=== PATIENT | female | born 1945 | race Caucasian/White ===

== ENCOUNTER 2016-12-06 11:14 | Inpatient (IN) | payer MEDICARE ==
[2016-12-06] MEDS ORDERED: Ondansetron 4 MG Tab.DIS PO PRN (16:00)
[2016-12-06] MEDS ORDERED: Simethicone 125 MG Tab.Chew PO PRN (16:15)
[2016-12-06] MEDS: traMADol 50 MG Tab PO PRN ×2 (16:24→23:35)
[2016-12-06] MEDS: Potassium Citrate 10 MEQ Tab.ER PO SCH (18:47)
[2016-12-06] MEDS: traZODone 50 MG Tab PO SCH (20:32)
[2016-12-06] MEDS: Aspirin 325 MG Tab.EC PO SCH (20:32)
[2016-12-06] MEDS: Celecoxib 200 MG Cap PO SCH (20:32)
[2016-12-06] MEDS: Simvastatin 10 MG Tab PO SCH (20:32)
[2016-12-07] MEDS: Pantoprazole 40 MG Tab.CR PO SCH (05:04)
[2016-12-07] MEDS: traMADol 50 MG Tab PO PRN (05:04)
[2016-12-07] MEDS: Celecoxib 200 MG Cap PO SCH ×2 (08:25→20:05)
[2016-12-07] MEDS: Aspirin 325 MG Tab.EC PO SCH ×2 (08:25→20:05)
[2016-12-07] MEDS: Potassium Citrate 10 MEQ Tab.ER PO SCH ×3 (08:25→17:15)
[2016-12-07] MEDS: Lisinopril 5 MG Tab PO SCH (08:26)
[2016-12-07] MEDS: Cholecalciferol (Vitamin D3) 1,000 Unit Tab PO SCH (08:27)
--- NOTE | 2016-12-07 09:18 | PCM.HP ---
H&P History of Present Illness - General Date of Service: 12/07/16 Admit Problem/Dx: Admission Diagnosis/Problem Admission Diagnosis/Problem Arthroplasty of knee Source of Information: Patient, Old Records - History of Present Illness Initial Comments - Free Text/Narative: 71-year-old female was admitted for rehabilitation. He went to right knee arthroplasty at [place]. She complains of significant pain throbbing on that knee and was unable to sleep last night. She's currently on tramadol as needed. Check constipation which is improved significantly since admission. She has a's of type 2 diabetes, with abnormal A1c, on no medications, essential hypertension have been well controlled. Further she had a history of TIAs more than 10 years ago no residual disability. She has a history of psoriasis currently using methotrexate. She lives with her fianc and is a nonsmoker. Right Knee Pain Score (Numeric/FACES): 3 - Related Data Allergies/Adverse Reactions: Allergies Allergy/AdvReac Type Severity Reaction Status Date / Time ciprofloxacin Allergy Hives Verified 04/28/15 21:16 codeine Allergy Diarrhea Verified 04/28/15 21:16 sulfamethoxazole Allergy Diarrhea Verified 04/28/15 21:16 [From Bactrim] Home Medications: Home Meds Lisinopril 5 mg PO DAILY 12/16/14 [History] traZODone HCl [Trazodone HCl] 25 mg PO BEDTIME 01/13/15 [History] Aspirin [Ecotrin] 325 mg PO BID 12/06/16 [History] Celecoxib [CeleBREX] 200 mg PO BID 12/06/16 [History] Cholecalciferol (Vitamin D3) [Vitamin D3] 2,000 units PO DAILY 12/06/16 [History ] Methotrexate 15 mg PO FR 12/06/16 [History] Omeprazole 20 mg PO DAILY@0600 12/06/16 [History] Ondansetron [Zofran ODT] 4 mg PO Q4H PRN 12/06/16 [History] Potassium Citrate 10 meq PO TIDMEALS 12/06/16 [History] Simethicone [Gas-X] 125 mg PO Q4H PRN 12/06/16 [History] Simvastatin [Zocor] 10 mg PO BEDTIME 12/06/16 [History] traMADol [Ultram] 50 mg PO Q4H PRN 12/06/16 [History] Past Medical History - Past Health History Medical/Surgical History: Denies Medical/Surgical History HEENT History: Reports: Impaired Vision, Other (See Below) Other HEENT History: wears glasses Cardiovascular History: Reports: Other (See Below) Other Cardiovascular History: hypertrophy Genitourinary History: Reports: Renal Disease Musculoskeletal History: Reports: Other (See Below) Other Musculoskeletal History: 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 on 11/29 Neurological History: Reports: CVA Endocrine/Metabolic History: Reports: Diabetes, Type II, Other (See Below) Other Endocrine/Metabolic History: diet controlled Dermatologic History: Reports: Psoriasis - Past Surgical History Female Surgical History: Reports: Section, Hysterectomy Musculoskeletal Surgical History: Reports: Knee Replacement Other Musculoskeletal Surgeries/Procedures:: 11/29/16 Social & Family History - Family History Family Medical History: Noncontributory - Tobacco Use Smoking Status *Q: Never Smoker Used Tobacco, but Quit: No Second Hand Smoke Exposure: No - Caffeine Use Caffeine Use: Reports: Coffee - Recreational Drug Use Recreational Drug Use: No H&P Review of Systems - Review of Systems: Review Of Systems: ROS reveals no pertinent complaints other than HPI. Exam - Exam Exam: See Below - Vital Signs Vital Signs: Last Vital Signs Temp 96.9 F 12/07/16 07:35 Pulse 78 12/07/16 07:35 Resp 18 12/07/16 07:35 BP 147/69 H 12/07/16 08:26 Pulse Ox 94 L 12/07/16 07:35 Weight: 100.335 kg - Exam General: Alert, Oriented, 4 HEENT: PERRLA, Hearing Intact, Mucosa Moist & [place], Nares Patent, Normal Nasal Septum, Posterior Pharynx Clear, Conjunctiva Clear, EOMI, EACs Clear, TMs Clear Neck: Supple, Trachea Midline, 2 Lungs: Clear to Auscultation, Normal Respiratory Effort Cardiovascular: Other (click) GI/Abdominal Exam: Distended (Female) Exam: Deferred Rectal (Female) Exam: Deferred Back Exam: Normal Inspection, Full Range of Motion, NT Extremities: Joint Swelling, Increased Warmth (right knee). No: Pedal Edema Skin: Warm, Dry, Intact Neurological: Cranial Nerves Intact, Reflexes Equal Bilateral Neuro Extensive - Mental Status: Alert, Oriented x3, Normal Mood/Affect, Normal Cognition Neuro Extensive - Motor, Sensory, Reflexes: CN II-XII Intact, Normal Gait, Normal Reflexes Psychiatric: Alert, Normal Affect, Normal Mood *Q Meaningful Use (ADM) - VTE *Q VTE Criteria *Q: - Stroke *Q Stroke Criteria *Q: - AMI *Q AMI Criteria *Q: - Problem List (1) Hip joint replacement status SNOMED Code(s): 040527332, 984852411, 020914716 ICD Code: Z96.649 - PRESENCE OF UNSPECIFIED ARTIFICIAL HIP JOINT Status: Acute Current Visit: Yes Qualifiers: Laterality: right Qualified Code(s): Z96.641 - Presence of right artificial hip joint (2) HTN (hypertension) SNOMED Code(s): 79236249 ICD Code: I10 - ESSENTIAL (PRIMARY) HYPERTENSION Status: Acute Current Visit: Yes Qualifiers: Hypertension type: essential hypertension Qualified Code(s): I10 - Essential (primary) hypertension (3) Diabetes mellitus type 2 in obese SNOMED Code(s): 48528000 ICD Code: E11.69 - TYPE 2 DIABETES MELLITUS WITH OTHER SPECIFIED COMPLICATION ; E66.9 - OBESITY, UNSPECIFIED Status: Chronic Current Visit: Yes (4) Psoriasis SNOMED Code(s): 3182680 ICD Code: L40.9 - PSORIASIS, UNSPECIFIED Status: Acute Current Visit: Yes Problem List Initiated/Reviewed/Updated: Yes Orders Last 24hrs: Active Orders 24 hr Category Date Time Status Admission Status [Patient Status] [ADT] Routine ADT 12/06/16 13:19 Active Ambulate [RC] QID Care 12/06/16 13:36 Active Cooling Warming Measures [RC] ASDIRECTED Care 12/06/16 13:29 Active Elevate Extremity [RC] QID Care 12/06/16 13:29 Active May Shower [RC] ASDIRECTED Care 12/06/16 13:32 Active Weight [Height and Weight] [RC] .qSun Care 12/06/16 16:31 Active OT Evaluation and Treatment [CONS] Routine Cons 12/06/16 15:14 Active PT Evaluation and Treatment [CONS] Routine Cons 12/06/16 15:14 Active Consistent Carbohydrate Diet [DIET] Diet 12/06/16 Dinner Active Acetaminophen/HYDROcodone [[place] 325-5 MG] Med 12/07/16 09:17 Ordered 1 tab PO Q4H PRN Aspirin [Ecotrin] Med 12/06/16 21:00 Active 325 mg PO BID Celecoxib [CeleBREX] Med 12/06/16 21:00 Active 200 mg PO BID Cholecalciferol (Vitamin D3) [Vitamin D3] Med 12/07/16 09:00 Active 2,000 units PO DAILY Lisinopril [Prinivil] Med 12/07/16 09:00 Active 5 mg PO DAILY Methotrexate Med 12/10/16 09:00 Active 15 mg PO FR Ondansetron [Zofran ODT] Med 12/06/16 16:00 Active 4 mg PO Q4H PRN Pantoprazole [ProTONIX] Med 12/07/16 06:00 Active 40 mg PO DAILY@0600 Potassium Citrate Med 12/06/16 18:00 Active 10 meq PO TIDMEALS Simethicone Med 12/06/16 16:15 Active 125 mg PO Q4H PRN Simvastatin [Zocor] Med 12/06/16 21:00 Active 10 mg PO BEDTIME traZODone Med 12/06/16 21:00 Active 25 mg PO BEDTIME Antiembolic Hose [OM.PC] Routine Oth 12/06/16 13:36 Ordered Ice Therapy [OM.PC] Routine Oth 12/06/16 13:29 Ordered Weight bearing status [OM.PC] Routine Oth 12/06/16 13:36 Ordered Resuscitation Status Routine Resus Stat 12/06/16 14:03 Ordered Medication Orders Hydrocodone Bitart/Acetaminophen ([place] 325-5 Mg) 1 tab PO Q4H PRN PRN Reason: Breakthrough Pain Aspirin (Ecotrin) 325 mg PO BID [facility] Last Admin: 12/07/16 08:25 Dose: 325 mg Admin: 12/06/16 20:32 Dose: 325 mg Celecoxib (Celebrex) 200 mg PO BID [facility] Last Admin: 12/07/16 08:25 Dose: 200 mg Admin: 12/06/16 20:32 Dose: 200 mg Cholecalciferol (Vitamin D3) 2,000 units PO DAILY [facility] Last Admin: 12/07/16 08:27 Dose: 2,000 units Lisinopril (Prinivil) 5 mg PO DAILY [facility] Last Admin: 12/07/16 08:26 Dose: 5 mg Methotrexate (Methotrexate) 15 mg PO FR [facility] Ondansetron HCl (Zofran Odt) 4 mg PO Q4H PRN PRN Reason: Nausea/Vomiting Pantoprazole Sodium (Protonix) 40 mg PO DAILY@0600 [facility] Last Admin: 12/07/16 05:04 Dose: 40 mg Potassium Citrate (Potassium Citrate) 10 meq PO TIDMEALS [facility] Last Admin: 12/07/16 08:25 Dose: 10 meq Admin: 12/06/16 18:47 Dose: 10 meq Simethicone (Simethicone) 125 mg PO Q4H PRN PRN Reason: GAS/FLATULENCE Simvastatin (Zocor) 10 mg PO BEDTIME [facility] Last Admin: 12/06/16 20:32 Dose: 10 mg Trazodone HCl (Trazodone) 25 mg PO BEDTIME [facility] Last Admin: 12/06/16 20:32 Dose: 25 mg Assessment/Plan Comment:: We'll continue with physical and occupational therapy as ordered. I will discontinue tramadol in favor of hydrocodone to better control her pain. The rest of the home medications have been resumed.
[2016-12-07] MEDS: Acetaminophen/HYDROcodone 325-5 MG Tab PO PRN ×3 (11:15→20:04)
[2016-12-07] MEDS: traZODone 50 MG Tab PO SCH (20:05)
[2016-12-07] MEDS: Simvastatin 10 MG Tab PO SCH (20:06)
[2016-12-08] MEDS: Acetaminophen/HYDROcodone 325-5 MG Tab PO PRN ×4 (01:06→16:29)
[2016-12-08] MEDS: Pantoprazole 40 MG Tab.CR PO SCH (06:53)
[2016-12-08] MEDS: Potassium Citrate 10 MEQ Tab.ER PO SCH ×3 (08:11→17:22)
[2016-12-08] MEDS: Cholecalciferol (Vitamin D3) 1,000 Unit Tab PO SCH (08:12)
[2016-12-08] MEDS: Lisinopril 5 MG Tab PO SCH (08:12)
[2016-12-08] MEDS: Celecoxib 200 MG Cap PO SCH ×2 (08:12→20:24)
[2016-12-08] MEDS: Aspirin 325 MG Tab.EC PO SCH ×2 (08:12→20:24)
[2016-12-08] MEDS ORDERED: Acetaminophen 325 MG Tab PO PRN (10:54)
--- NOTE | 2016-12-08 11:00 | HP ---
ADMISSION DATE: 12/06/2016 ADDENDUM: Please note that in my history and physical yesterday, I erroneously documented hip joint replacement instead of knee replacement. May it be on record that what I meant to say was status post knee arthroplasty. /[id number] LALO/RADHA
[2016-12-08] MEDS ORDERED: Simethicone 80 MG Tab.Chew PO PRN (13:42)
[2016-12-08] MEDS: traZODone 50 MG Tab PO SCH (20:24)
[2016-12-08] MEDS: Simvastatin 10 MG Tab PO SCH (20:24)
[2016-12-09] MEDS: Pantoprazole 40 MG Tab.CR PO SCH (06:30)
[2016-12-09] MEDS: Aspirin 325 MG Tab.EC PO SCH ×2 (08:43→20:16)
[2016-12-09] MEDS: Potassium Citrate 10 MEQ Tab.ER PO SCH ×3 (08:43→17:39)
[2016-12-09] MEDS: Lisinopril 5 MG Tab PO SCH (08:43)
[2016-12-09] MEDS: Celecoxib 200 MG Cap PO SCH ×2 (08:43→20:16)
[2016-12-09] MEDS: Cholecalciferol (Vitamin D3) 1,000 Unit Tab PO SCH (08:44)
[2016-12-09] MEDS: Simvastatin 10 MG Tab PO SCH (20:16)
[2016-12-09] MEDS: traZODone 50 MG Tab PO SCH (20:16)
[2016-12-09] MEDS: Acetaminophen/HYDROcodone 325-5 MG Tab PO PRN (20:17)
[2016-12-10] MEDS: Acetaminophen/HYDROcodone 325-5 MG Tab PO PRN (02:32)
[2016-12-10] MEDS: Pantoprazole 40 MG Tab.CR PO SCH (07:00)
[2016-12-10] MEDS: Potassium Citrate 10 MEQ Tab.ER PO SCH (07:37)
[2016-12-10 08:56] VITALS: BP 131/66
[2016-12-10] MEDS: Celecoxib 200 MG Cap PO SCH (08:56)
[2016-12-10] MEDS: Cholecalciferol (Vitamin D3) 1,000 Unit Tab PO SCH (08:56)
[2016-12-10] MEDS: Methotrexate 2.5 MG Tab PO SCH ×2 (08:56→09:01)
[2016-12-10] MEDS: Aspirin 325 MG Tab.EC PO SCH (08:56)
[2016-12-10] MEDS: Lisinopril 5 MG Tab PO SCH (08:56)
--- NOTE | 2016-12-10 10:32 | DISCH ---
DISCHARGE DATE: 12/10/2016 REASON FOR ADMISSION: Status post right knee arthroplasty total. DISCHARGE DIAGNOSES: Status post right knee arthroplasty total, type 2 diabetes, hyperlipidemia, psoriasis and hypertension. CONSULTATIONS: Physical Therapy. BRIEF HISTORY: This is a 71-year-old female, who had to the swing bed for physical therapy rehab after surgery and replacement the right knee and she underwent physical therapy. She is ready to go back home. Pain was better controlled on hydrocodone. DISCHARGE MEDICATIONS: 1. Aspirin 325 mg a day for 26 more days. 2. Omeprazole 10 mg a day as long as she is on the aspirin. 3. Hydrocodone 1 tablet every [address] of the tramadol. She will also go home on regular home medications of, 1. Celebrex. 2. Vitamin D3. 3. Lisinopril. 4. Methotrexate. 5. Potassium citrate. 6. Simethicone. 7. Trazodone. FOLLOWUP: She will see a physician, Dr. Gonzalez within 1 week after discharge. We will continue to home health, to check medications, and Physical and Occupational Therapy at home. Please note that I spent more than 35 minutes in the discharge of this patient. /[id number] LALO/RADHA
== END 2016-12-10 10:30 | disposition home health service (06) | DRG 561 ==
LOC: EDSTATUS 13:15 → FB.MS 14:15
PROVIDERS: ADMIT Family Medicine; ATTEND Family Medicine
DX: Z47.1 Aftercare following joint replacement surgery (principal); Z96.641 Presence of right artificial hip joint; Z98.890 Other specified postprocedural states; I10 Essential (primary) hypertension; Z86.73 Personal history of transient ischemic attack (TIA), and cerebral infarction without residual deficits; L40.9 Psoriasis, unspecified; H54.7 Unspecified visual loss; Z79.82 Long term (current) use of aspirin; Z88.1 Allergy status to other antibiotic agents; Z88.5 Allergy status to narcotic agent; E11.9 Type 2 diabetes mellitus without complications
CPT/HCPCS: 97110-GP; 97116-GP; 97161-GP; 97166-GO; 97530-GO; 97530-GO-KX; 97535-GO; A9270-GY; J8610

== ENCOUNTER 2017-11-02 12:41 | Emergency (ER) | payer MEDICARE ==
[2017-11-02] MEDS ORDERED: Ketorolac 30 MG/ML SDV IM ONE (13:01)
[2017-11-02 13:03] VITALS: BP 148/72
--- NOTE | 2017-11-02 13:09 | EDM.PDOC ---
ED HPI GENERAL MEDICAL PROBLEM - General Stated Complaint: SORE LEFT ARM BOTH KNEES Time Seen by Provider: 11/02/17 12:41 Source of Information: Reports: Patient, Family History Limitations: Reports: No Limitations - History of Present Illness INITIAL COMMENTS - FREE TEXT/NARRATIVE: 72 y.o.w.f came to the ed c/o left forearm and wrist pain and anurag knee pain after she fell while reaching for an object.. Pt had her right knee replaced last year. Pt is able to ambulate well. No N/V/D or any other acute medial issues. BP 148/72 RR 19 Pulse ox 96% on RA pulse 81 temp 36.9 Onset Date: 11/02/17 Onset Time: 13:30 Duration: Hour(s): Location: Reports: Upper Extremity, Left, Other (both knees) Quality: Reports: Ache, Dull Severity: Mild Improves with: Reports: Rest Worsens with: Reports: Movement Context: Reports: Trauma left arm & anurag knees Pain Score (Numeric/FACES): 10 - Related Data Allergies Allergy/AdvReac Type Severity Reaction Status Date / Time ciprofloxacin Allergy Hives Verified 04/28/15 21:16 codeine Allergy Respiratory Verified 11/02/17 12:59 Distress sulfamethoxazole Allergy Diarrhea Verified 04/28/15 21:16 [From Bactrim] Home Meds: Home Meds Lisinopril 5 mg PO DAILY 12/16/14 [History] Celecoxib [CeleBREX] 200 mg PO BID 12/06/16 [History] Cholecalciferol (Vitamin D3) [Vitamin D3] 2,000 units PO DAILY 12/06/16 [History ] Potassium Citrate 10 meq PO TIDMEALS 12/06/16 [History] Simethicone [Gas-X] 125 mg PO Q4H PRN 12/06/16 [History] Simvastatin [Zocor] 10 mg PO BEDTIME 12/06/16 [History] Aspirin [Ecotrin] 325 mg PO BID #27 tab.ec 12/10/16 [Rx] Omeprazole 20 mg PO DAILY@0600 #30 cap.cr 12/10/16 [Rx] Past Medical History - Past Health History Medical/Surgical History: Denies Medical/Surgical History HEENT History: Reports: Impaired Vision, Other (See Below) Other HEENT History: wears glasses Cardiovascular History: Reports: Other (See Below) Other Cardiovascular History: hypertrophy Genitourinary History: Reports: Renal Disease Musculoskeletal History: Reports: Other (See Below) Other Musculoskeletal History: 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 on 11/29 Neurological History: Reports: CVA Endocrine/Metabolic History: Reports: Diabetes, Type II, Other (See Below) Other Endocrine/Metabolic History: diet controlled Dermatologic History: Reports: Psoriasis - Past Surgical History Female Surgical History: Reports: Section, Hysterectomy Musculoskeletal Surgical History: Reports: Knee Replacement Other Musculoskeletal Surgeries/Procedures:: 11/29/16 Social & Family History - Family History Family Medical History: Noncontributory - Caffeine Use Caffeine Use: Reports: Coffee Review of Systems - Review of Systems Review Of Systems: See Below Constitutional: Reports: No Symptoms Eyes: Reports: No Symptoms Ears: Reports: No Symptoms Nose: Reports: No Symptoms Mouth/Throat: Reports: No Symptoms Respiratory: Reports: No Symptoms Cardiovascular: Reports: No Symptoms GI/Abdominal: Reports: No Symptoms Genitourinary: Reports: No Symptoms Musculoskeletal: Reports: Other (left wrist pain anurag knee pain) Skin: Reports: No Symptoms Neurological: Reports: No Symptoms Psychiatric: Reports: No Symptoms ED EXAM, GENERAL - Physical Exam Exam: See Below Exam Limited By: Physical Impairment General Appearance: Alert, WD/WN, Mild Distress, Obese Eye Exam: Bilateral Eye: Normal Inspection Ears: Normal External Exam Ear Exam: Bilateral Ear: Auricle Normal Nose: Normal Inspection, Normal Mucosa, No Blood Throat/Mouth: Normal Inspection, Normal Lips, Normal Gums, Normal Oropharynx, Normal Voice, No Airway Compromise Head: Atraumatic, Normocephalic Neck: Normal Inspection, Supple, Non-Tender, Full Range of Motion Respiratory/Chest: No Respiratory Distress, Lungs Clear, Normal Breath Sounds, No Accessory Muscle Use, Chest Non-Tender Cardiovascular: Normal Peripheral Pulses, Regular Rate, Rhythm GI/Abdominal: Normal Bowel Sounds, Soft, Non-Tender, No Organomegaly, No Distention (Female) Exam: Deferred Rectal (Female) Exam: Deferred Back Exam: Normal Inspection, Full Range of Motion Extremities: Normal Inspection, Normal Range of Motion, Other (tender left dist radius to palpation) Neurological: Alert, Oriented, CN II-XII Intact, Normal Cognition, Normal Gait, No Motor/Sensory Deficits Psychiatric: Normal Affect, Normal Mood Skin Exam: Warm, Dry, Intact, Normal Color, No Rash Lymphatic: No Adenopathy Course - Vital Signs Text/Narrative:: 72 y.o.w.f came to the ed c/o left forearm and wrist pain and anurag knee pain after she fell while reaching for an object.. Pt had her right knee replaced last year. Pt is able to ambulate well. No N/V/D or any other acute medial issues. BP 148/72 RR 19 Pulse ox 96% on RA pulse 81 temp 36.9 PE: Obese 72 y.o.w.f with knee and left wrsit pain, ambulates well Imaging: Left wrist: poss fructure left distal radius as per RAD Impression: left wrist sprain vs fracture 2.01 pm Consultation: Dr. Pro, ortho: Valco splint, f/u in clinic this Tuesday. Tx: ICE, Toradol, Valcow splint Reexam: Improved Plan: D/C with instructions Last Recorded V/S: Last Vital Signs Temp 36.4 C 11/02/17 12:42 Pulse 72 11/02/17 12:42 Resp 16 11/02/17 12:42 BP 148/72 H 11/02/17 12:42 Pulse Ox 98 11/02/17 12:42 - Orders/Labs/Meds Orders: Active Orders 24 hr Category Date Time Status Ice Therapy [OM.PC] Routine Oth 11/02/17 13:01 Ordered Meds: Medications Discontinued Medications Generic Name Dose Route Start Last Admin Trade Name Freq PRN Reason Stop Dose Admin Ketorolac Tromethamine 30 mg 11/02/17 13:01 11/02/17 13:08 Toradol IM 11/02/17 13:02 30 mg ONETIME ONE Administration Departure - Departure Time of Disposition: 13:54 Disposition: Home, Self-Care 01 Condition: Good Clinical Impression: Left wrist sprain Qualifiers: Encounter type: initial encounter Qualified Code(s): S63.502A - Unspecified sprain of left wrist, initial encounter - Discharge Information Instructions: Wrist Splint, Adult, [id number], Wrist Sprain, Adult Referrals: Roseline Willson NP [Primary Care Provider] - Vinod Pro DO [Physician] - Forms: ED Department Discharge Additional Instructions: Please apply the splint at daytime, take motrin for pain, ICE, Rest and Elevation, please f/u with Dr. Pro this Tuesday. Please come back if your symptoms get worse acutely - My Orders Last 24 Hours: My Active Orders 11/02/17 13:01 Ice Therapy [OM.PC] Routine - Assessment/Plan Last 24 Hours: My Active Orders 11/02/17 13:01 Ice Therapy [OM.PC] Routine
--- NOTE | 2017-11-02 14:47 | CR ---
INDICATION: Trauma, fell today. LEFT WRIST: Three views of the left wrist revealed question of a partial cortical fracture at the distal radial shaft - metaphysis. No displaced fracture site or dislocation was identified. Degenerative changes are noted at the first metacarpocarpal joint of moderate degree. Calcific density adjacent to the ulnar styloid may represent an ununited accessory ossification center or previous soft tissue injury with calcification in the soft tissues in that area. The latter is felt to be more likely. Somewhat demineralized appearance suggests the possibility of osteoporosis - correlate clinically. IMPRESSION: No displaced fracture site identified but question minimal - partial cortical fracture at the distal radius. Followup study in 10-14 days may be helpful. Report was called to Dr. Wells at 1334 hours on 11/02/2017. [facility]
--- NOTE | 2017-11-02 14:51 | CR ---
INDICATION: Trauma, fell today. LEFT FOREARM: Frontal and lateral views of the left forearm were obtained and revealed no displaced fracture site or dislocation or other definite acute bone or joint abnormality. Degenerative changes are noted at the medial elbow joint compartment of moderate degree. Degenerative changes are noted at the first metacarpocarpal joint. IMPRESSION: 1. No displaced fracture site is identified. 2. Osteoarthritis. 3. Probable osteoporosis - correlate clinically. Report was called to Dr. Wells at 1334 hours on 11/02/2017. [facility]
== END 2017-11-02 14:10 | disposition home or self-care (01) ==
LOC: FB.ED 12:41
DX: S63.502A Unspecified sprain of left wrist, initial encounter (principal); E11.9 Type 2 diabetes mellitus without complications; Z88.1 Allergy status to other antibiotic agents; Z88.5 Allergy status to narcotic agent; Z88.2 Allergy status to sulfonamides; Z79.82 Long term (current) use of aspirin; Z79.899 Other long term (current) drug therapy; Z96.651 Presence of right artificial knee joint; W19.XXXA Unspecified fall, initial encounter
CPT/HCPCS: 73090; 73110; 96372; 99283; J1885

== ENCOUNTER 2018-12-04 07:56 | Emergency (ER) | payer MEDICARE ==
--- NOTE | 2018-12-04 08:21 | EDM.PDOC ---
ED HPI GENERAL MEDICAL PROBLEM - General Stated Complaint: VOMITING Time Seen by Provider: 12/04/18 08:00 Source of Information: Reports: Patient, Family History Limitations: Reports: No Limitations - History of Present Illness INITIAL COMMENTS - FREE TEXT/NARRATIVE: Patient is a pleasant 73-year-old female who presents today with lower abdominal pain and some right and left-sided abdominal pain. She feels like she needs to pass stool, but states that she's tried a couple times this morning and has not been able to. Slight amount of sweating. States that her urination is okay. Her last bowel movement was 3 days ago, and she noticed some belching this morning for which she took Pepto-Bismol. The pain is constant and woke her up from sleep. She did not eat anything for breakfast. She does not feel lightheaded or dizzy, she denies any chest pain, shortness of breath, numbness or tingling in her hands or feet. History of gallbladder surgery, 3 C-sections nonclassic style, hysterectomy and has one ovary. Has not had her appendix removed. Per chart review, she also has a history of kidney stones, and developmental delay. - Related Data Allergies Allergy/AdvReac Type Severity Reaction Status Date / Time ciprofloxacin Allergy Hives Verified 12/04/18 08:35 codeine Allergy Respiratory Verified 12/04/18 08:35 Distress sulfamethoxazole Allergy Diarrhea Verified 12/04/18 08:35 [From Bactrim] Home Meds: Home Meds Lisinopril 5 mg PO DAILY 12/16/14 [History] Aspirin [Ecotrin EC] 325 mg PO BID #27 tab.ec 12/10/16 [Rx] Past Medical History HEENT History: Reports: Impaired Vision, Other (See Below) Other HEENT History: wears glasses Cardiovascular History: Reports: Other (See Below) Other Cardiovascular History: hypertrophy. 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 on 11/29 Neurological History: Reports: CVA Endocrine/Metabolic History: Reports: Diabetes, Type II, Other (See Below) Other Endocrine/Metabolic History: diet controlled Dermatologic History: Reports: Psoriasis - Past Surgical History GI Surgical History: Reports: Cholecystectomy Female Surgical History: Reports: Section, Hysterectomy Musculoskeletal Surgical History: Reports: Knee Replacement Other Musculoskeletal Surgeries/Procedures:: 11/29/16 Social & Family History - Family History Family Medical History: Noncontributory - Tobacco Use Smoking Status *Q: Never Smoker - Caffeine Use Caffeine Use: Reports: Coffee - Alcohol Use Alcohol Use History: No - Recreational Drug Use Recreational Drug Use: No - Living Situation & Occupation Living situation: Reports: ED ROS GENERAL - Review of Systems Review Of Systems: See Below Constitutional: Reports: Malaise, Decreased Appetite. Denies: Fever, Chills, Weakness, Night Sweats, Diaphoresis HEENT: Reports: No Symptoms Respiratory: Reports: No Symptoms. Denies: Shortness of Breath, Pleuritic Chest Pain, Cough Cardiovascular: Reports: No Symptoms. Denies: Chest Pain Endocrine: Reports: No Symptoms GI/Abdominal: Reports: Other (see hpi ) Musculoskeletal: Reports: No Symptoms Skin: Reports: No Symptoms Neurological: Denies: Headache, Numbness, Tingling, Trouble Speaking, Weakness Psychiatric: Reports: No Symptoms Hematologic/Lymphatic: Denies: Easy Bleeding, Easy Bruising Immunologic: Reports: No Symptoms ED EXAM, GENERAL - Physical Exam Exam: See Below Free Text/Narrative:: Gen.: Alert, somewhat slow in her responses. Head is atraumatic, pupils equal and reactive, facial muscles symmetric. Neck is supple and without cervical lymphadenopathy. Throat is without erythema, mucous members are moist. Lungs are clear throughout with no wheezes or crackles. Heart is regular rate and rhythm and I do not hear murmur. Abdomen positive bowel sounds, diffusely tender mostly in the right lower quadrant and up the right side of the abdomen. She has pain in the right lower quadrant with palpation of the left side as well. No costovertebral angle pain. Peripheral pulses are +2 in the upper and lower extremities and there is no lower extremity edema. She has diffuse psoriasis with involvement of multiple sites on her back, elbows and arms. There is also a reddened area underneath her pannus which raises concern for yeast infection. Her gait is normal and her muscle strength is equal side to side. Course - Vital Signs Text/Narrative:: Patient with significant discomfort on exam, labs ordered, UA also. Per review of the chart, patient has history of nephrolithiasis as well as multiple abdominal surgeries. No history of bowel obstruction that she remembers, but her history is not very consistent. Morphine and Zofran ordered for comfort, maintenance fluids. Last Recorded V/S: Last Vital Signs Temp 36.7 C 12/04/18 14:30 Pulse 85 12/04/18 14:30 Resp 18 12/04/18 14:30 BP 106/50 L 12/04/18 14:30 Pulse Ox 96 12/04/18 14:30 - Orders/Labs/Meds Orders: Active Orders 24 hr Category Date Time Status CULTURE URINE [RM] Stat Lab 12/04/18 11:23 Received Sodium Chloride 0.9% [Normal Saline] 1,000 ml Med 12/04/18 08:30 Active IV ASDIRECTED Medication Orders Sodium Chloride (Normal Saline) 1,000 mls @ 150 mls/hr IV ASDIRECTED CLAIRE Last Admin: 12/04/18 08:52 Dose: 150 mls/hr Labs: Laboratory Tests 12/04/18 12/04/18 12/04/18 Range/Units 08:55 08:55 08:55 WBC 9.3 (4.5-12.0) X10-3/uL RBC 4.11 (3.23-5.20) x10(6)uL Hgb 13.4 (11.5-15.5) g/dL Hct 39.0 (30.0-51.3) % MCV 95.0 (80-96) fL MCH 32.5 (27.7-33.6) pg MCHC 34.2 (32.2-35.4) g/dL RDW 12.5 (11.5-15.5) % Plt Count 170 (125-369) X10(3)uL MPV 10.4 (7.4-10.4) fL Neut % (Auto) 66.2 (46-82) % Lymph % (Auto) 27.7 (13-37) % [place] % (Auto) 5.0 (4-12) % Eos % (Auto) 1 (1.0-5.0) % Baso % (Auto) 1 (0-2) % Neut # (Auto) 6.1 (1.6-8.3) # Lymph # (Auto) 2.6 (0.6-5.0) # [place] # (Auto) 0.5 (0.0-1.3) # Eos # (Auto) 0.1 (0.0-0.8) # Baso # (Auto) 0.0 (0.0-0.2) # Sodium 141 (135-145) mmol/L Potassium 4.3 (3.5-5.3) mmol/L Chloride 106 (100-110) mmol/L Carbon Dioxide 27 (21-32) mmol/L BUN 26 H (7-18) mg/dL Creatinine 0.8 (0.55-1.02) mg/dL Est Cr Clr Drug Dosing TNP Estimated GFR (MDRD) > 60 (>60) BUN/Creatinine Ratio 32.5 H (9-20) Glucose 142 H (80-116) mg/dL Lactic Acid 1.6 (0.4-2.2) mmol/L Calcium 8.8 (8.6-10.2) mg/dL Total Bilirubin 0.4 (0.1-1.3) mg/dL AST 25 (5-25) IU/L ALT 27 (12-36) U/L Alkaline Phosphatase 56 (56-112) IU/L C-Reactive Protein (0.5-0.9) mg/dL Total Protein 6.9 (6.0-8.0) g/dL Albumin 3.3 (3.2-4.6) g/dL Globulin 3.6 g/dL Albumin/Globulin Ratio 0.9 Amylase 40 (25-115) U/L Urine Color (YELLOW) Urine Appearance (CLEAR) Urine pH (5.0-6.5) Ur Specific [place] (1.010-1.025) Urine Protein (NEGATIVE) mg/dL Urine Glucose (UA) (NORMAL) mg/dL Urine Ketones (NEGATIVE) mg/dL Urine Occult Blood (NEGATIVE) Urine Nitrite (NEGATIVE) Urine Bilirubin (NEGATIVE) Urine Urobilinogen (NEGATIVE) mg/dL Ur Leukocyte Esterase (NEGATIVE) Urine RBC (0-5) Urine WBC (0-5) Ur Squamous Epith Cells (NS,R,O) Urine Bacteria (NS) 12/04/18 12/04/18 Range/Units 08:55 08:59 WBC (4.5-12.0) X10-3/uL RBC (3.23-5.20) x10(6)uL Hgb (11.5-15.5) g/dL Hct (30.0-51.3) % MCV (80-96) fL MCH (27.7-33.6) pg MCHC (32.2-35.4) g/dL RDW (11.5-15.5) % Plt Count (125-369) X10(3)uL MPV (7.4-10.4) fL Neut % (Auto) (46-82) % Lymph % (Auto) (13-37) % [place] % (Auto) (4-12) % Eos % (Auto) (1.0-5.0) % Baso % (Auto) (0-2) % Neut # (Auto) (1.6-8.3) # Lymph # (Auto) (0.6-5.0) # [place] # (Auto) (0.0-1.3) # Eos # (Auto) (0.0-0.8) # Baso # (Auto) (0.0-0.2) # Sodium (135-145) mmol/L Potassium (3.5-5.3) mmol/L Chloride (100-110) mmol/L Carbon Dioxide (21-32) mmol/L BUN (7-18) mg/dL Creatinine (0.55-1.02) mg/dL Est Cr Clr Drug Dosing Estimated GFR (MDRD) (>60) BUN/Creatinine Ratio (9-20) Glucose (80-116) mg/dL Lactic Acid (0.4-2.2) mmol/L Calcium (8.6-10.2) mg/dL Total Bilirubin (0.1-1.3) mg/dL AST (5-25) IU/L ALT (12-36) U/L Alkaline Phosphatase (56-112) IU/L C-Reactive Protein 0.3 L (0.5-0.9) mg/dL Total Protein (6.0-8.0) g/dL Albumin (3.2-4.6) g/dL Globulin g/dL Albumin/Globulin Ratio Amylase (25-115) U/L Urine Color Yellow (YELLOW) Urine Appearance Cloudy (CLEAR) Urine pH 7.0 H (5.0-6.5) Ur Specific [place] 1.015 (1.010-1.025) Urine Protein Trace (NEGATIVE) mg/dL Urine Glucose (UA) Normal (NORMAL) mg/dL Urine Ketones Negative (NEGATIVE) mg/dL Urine Occult Blood Large H (NEGATIVE) Urine Nitrite Positive H (NEGATIVE) Urine Bilirubin Negative (NEGATIVE) Urine Urobilinogen Normal (NEGATIVE) mg/dL Ur Leukocyte Esterase Large H (NEGATIVE) Urine RBC 5-10 H (0-5) Urine WBC 10-20 H (0-5) Ur Squamous Epith Cells Few H (NS,R,O) Urine Bacteria Many H (NS) Meds: Medications Generic Name Dose Route Start Last Admin Trade Name Freq PRN Reason Stop Dose Admin Sodium Chloride 1,000 mls @ 150 mls/hr 12/04/18 08:30 12/04/18 08:52 Normal Saline IV 150 mls/hr ASDIRECTED CLAIRE Administration Discontinued Medications Generic Name Dose Route Start Last Admin Trade Name Freq PRN Reason Stop Dose Admin Cefepime HCl 2 gm 12/04/18 13:48 12/04/18 14:29 Maxipime IVPUSH 12/04/18 13:49 2 gm ONETIME ONE Administration Morphine Sulfate 2 mg 12/04/18 08:22 12/04/18 08:51 Morphine IVPUSH 12/04/18 08:23 2 mg ONETIME ONE Administration Ondansetron HCl 4 mg 12/04/18 08:22 12/04/18 08:50 Zofran IVPUSH 12/04/18 08:23 4 mg ONETIME ONE Administration - Re-Assessments/Exams Free Text/Narrative Re-Assessment/Exam: 12/04/18 labs reviewed, normal CBC with no elevation in white count, will CRP, normal basic metabolic profile and creatinine 0.8. Liver enzymes also within normal limits. UA still pending at this time. Patient appears more comfortable after 2 of morphine Decrease in blood pressure noted on repeat vitals, however she is also decreased heart rate and does not appear sweaty. Suspect is related to morphine. She is not on a beta madelyn or anything which would prevent her from compensating in the event of symptomatic hypotension Free Text/Narrative Re-Assessment/Exam: 12/04/18 UA still pending, but patient has noted to have two bowel movements. Unable to collect clean urine, will get cath. Free Text/Narrative Re-Assessment/Exam: 12/04/18 Summary of events: Patient UA returned with significant occult blood, positive nitrates and positive leukocyte esterase. Still significantly tender on abdominal exam, so decision made to do CT abdomen and pelvis without contrast to evaluate the renal system. CT abdomen and pelvis returned with renal stone in the ureterovesical junction on the right side, 5 x 4 mm, with moderate to severe hydronephrosis behind it. Patient more comfortable after 2 of morphine, and is still concerned about her constipation. Dose of cefepime ordered given urinalysis with concern for infection and now obstructing uropathy. Urine culture ordered. Discussed with patient and her transferred to [place] for urology evaluation, they're in agreement. Patient Discussed with Dr. Holley, accepts for admission. Patient has remained hemodynamically stable and due to length of transport time by EMS will send by private car, as her is ready to take her up there. She shows no signs of sepsis and is able to ambulate to the restroom without assistance. Departure - Departure Time of Disposition: 15:47 Disposition: DC/Tfer to Acute Hospital 02 Condition: Fair Clinical Impression: Hydronephrosis concurrent with and due to calculi of kidney and ureter, Abdominal pain, Urinary tract infection - Discharge Information *PRESCRIPTION DRUG MONITORING PROGRAM REVIEWED*: Not Applicable *COPY OF PRESCRIPTION DRUG MONITORING REPORT IN PATIENT [place]: Not Applicable Referrals: Roseline Willson NP [Primary Care Provider] - - My Orders Last 24 Hours: My Active Orders 12/04/18 08:30 Sodium Chloride 0.9% [Normal Saline] 1,000 ml IV ASDIRECTED 12/04/18 11:23 CULTURE URINE [RM] Stat - Assessment/Plan Last 24 Hours: My Active Orders 12/04/18 08:30 Sodium Chloride 0.9% [Normal Saline] 1,000 ml IV ASDIRECTED 12/04/18 11:23 CULTURE URINE [RM] Stat
[2018-12-04] MEDS ORDERED: Morphine 2 MG/ML Syringe IVPUSH ONE (08:22)
[2018-12-04] MEDS ORDERED: Ondansetron 4 MG/2 ML SDV IVPUSH ONE (08:22)
[2018-12-04] MEDS ORDERED: Sodium Chloride 0.9% 1,000 ML IV SCH (08:30)
[2018-12-04] MEDS ORDERED: Cefepime 2 GM Vial IVPUSH ONE (13:48)
--- NOTE | 2018-12-04 14:13 | CT ---
INDICATION: Question renal calculus, also concern for bowel obstruction. Right lower quadrant pain. CT ABDOMEN AND PELVIS WITHOUT CONTRAST: Spiral 2.5 mm axial sections were obtained through the abdomen and pelvis with renal calculus protocol, including sagittal and coronal reconstructions, 12/04/18 - no comparisons. Total exam DLP = 1,746.56 mGy-cm. The lower lung banks and pleural spaces visualized showed no evidence of a definite active infiltrate or effusion. Coronary artery calcifications are noted. Heart was not enlarged. No pericardial effusion was seen. Calcifications are noted in the abdominal aorta, splenic, renal, iliac and femoral arteries. No aneurysmal dilatation was noted. No retroperitoneal mass was identified. A moderate amount of stool is noted in the colon. The appendix appeared normal, visualized on coronal images #47 through #52 and axial images #118 through #124. No evidence of free air or bowel obstruction was seen. A moderately large bolus of stool was noted in the rectum. There is some irregular thickening of the wall of the urinary bladder, raising question of a cystitis. This should be correlated clinically. Degenerative changes and disk disease are noted at L2 through S1 with vacuum disk phenomena at those levels. Renal calcinosis is noted bilaterally with some thinning of the renal cortices, especially on the left. On the right, there additionally is pyelocaliectasis and ureterectasis down to the uterovesical junction, where a 4.1 x 5.1 mm calculus is lodges. This is producing moderate to moderately severe obstructive uropathy on the right. No other organomegaly, mass lesions, or free fluid collections were identified in the abdomen or pelvis. The gallbladder is absent, compatible with history of its removal. The liver, spleen, adrenal glands, and for the most part pancreas appear to be normal. The uterus is absent, compatible with history of its removal. IMPRESSION: 1. Obstructive uropathy on the right, moderate to moderately severe due to a 4.1 x 5.1 mm calculus, which is embedded in the ureterovesical junction on the right. 2. Renal cortical scarring and thinning, somewhat more prominent on the left with bilateral renal calcinosis. 3. ASD/ASHD. 4. Post cholecystectomy. 5. Post hysterectomy. 6. Degenerative changes and disk disease L2 through S1. 7. Suggestion of some irregular thickening of the wall of the urinary bladder is in question of cystitis - correlate clinically. 8. Moderately large bolus of stool noted in the rectum of questionable significance. Report was called to Dr. Zhang at 1308 hours on 12/04/18. MTDD
[2018-12-04 19:16] VITALS: BP 144/53; PULSE 68
== END 2018-12-04 16:06 ==
LOC: FB.ED 07:56
DX: N13.2 Hydronephrosis with renal and ureteral calculous obstruction (principal); N39.0 Urinary tract infection, site not specified; E11.9 Type 2 diabetes mellitus without complications; Z88.1 Allergy status to other antibiotic agents; Z88.5 Allergy status to narcotic agent; Z88.2 Allergy status to sulfonamides; Z79.82 Long term (current) use of aspirin; Z79.899 Other long term (current) drug therapy; Z90.49 Acquired absence of other specified parts of digestive tract; Z90.710 Acquired absence of both cervix and uterus
CPT/HCPCS: 36415; 51701; 74176; 80053; 81001; 82150; 83605; 85025; 86140; 87086; 87088; 87186; 96361; 96374; 96375; 99285-25; J0692; J2270; J2405; J7030

== ENCOUNTER 2019-09-03 05:52 | Emergency (ER) | payer MEDICARE ==
[2019-09-03] MEDS ORDERED: Lactated Ringers 1,000 ML IV ONE (05:59)
[2019-09-03] MEDS ORDERED: Prochlorperazine 10 MG/2 ML SDV IVPUSH ONE (06:00)
[2019-09-03] MEDS ORDERED: diphenhydrAMINE 50 MG/ML SDV IVPUSH ONE (06:00)
--- NOTE | 2019-09-03 06:10 | EDM.PDOC ---
ED HPI GENERAL MEDICAL PROBLEM - General Chief Complaint: Headache Stated Complaint: VOMITING Time Seen by Provider: 09/03/19 06:05 Source of Information: Reports: Patient, Family, Old Records, RN History Limitations: Reports: Other (poor historian) - History of Present Illness INITIAL COMMENTS - FREE TEXT/NARRATIVE: 73 yo female is brought in by her for a frontal forehead associated with nausea and vomiting. No fever. Denies PAEZ's like this in the past. Has a Hx of CVA. Is mildly confused here in the ER. No hematemesis or diarrhea. No neck stiffness. No abdominal pain. Onset Date: 09/02/19 Duration: Hour(s):, Constant Location: Reports: Head Quality: Reports: Ache Severity: Severe Improves with: Reports: None Worsens with: Reports: None Context: Reports: Other (See HPI) Associated Symptoms: Reports: Confusion (? old vs new), Headaches, Nausea/ Vomiting. 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) (none) frontal head Pain Score (Numeric/FACES): 10 - Related Data Allergies Allergy/AdvReac Type Severity Reaction Status Date / Time ciprofloxacin Allergy Hives Verified 12/04/18 08:35 codeine Allergy Respiratory Verified 12/04/18 08:35 Distress sulfamethoxazole Allergy Diarrhea Verified 12/04/18 08:35 [From Bactrim] Home Meds: Home Meds Lisinopril 5 mg PO DAILY 12/16/14 [History] Aspirin [Ecotrin EC] 325 mg PO BID #27 tab.ec 12/10/16 [Rx] cephALEXin [Cephalexin] 500 mg PO Q8H #20 tablet 09/03/19 [Rx] Past Medical History - Past Health History Medical/Surgical History: Denies Medical/Surgical History HEENT History: Reports: Impaired Vision, Other (See Below) Other HEENT History: wears glasses Cardiovascular History: Reports: Other (See Below) Other Cardiovascular History: hypertrophy. 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 Neurological History: Reports: CVA Endocrine/Metabolic History: Reports: Diabetes, Type II, Other (See Below) Other Endocrine/Metabolic History: diet controlled Dermatologic History: Reports: Psoriasis - Past Surgical History GI Surgical History: Reports: Cholecystectomy Female Surgical History: Reports: Section, Hysterectomy Musculoskeletal Surgical History: Reports: Knee Replacement Other Musculoskeletal Surgeries/Procedures:: 11/29/16 Social & Family History - Family History Family Medical History: Noncontributory - Caffeine Use Caffeine Use: Reports: Coffee - Living Situation & Occupation Living situation: Reports: ED ROS GENERAL - Review of Systems Review Of Systems: See Below Constitutional: Reports: No Symptoms HEENT: Reports: No Symptoms Respiratory: Reports: No Symptoms Cardiovascular: Reports: No Symptoms GI/Abdominal: Reports: Nausea, Vomiting. Denies: Diarrhea, Hematemesis : Reports: No Symptoms Musculoskeletal: Reports: No Symptoms Skin: Reports: No Symptoms Neurological: Reports: Headache - Physical Exam Exam: See Below Exam Limited By: No Limitations General Appearance: Alert, WD/WN, Mild Distress Eye Exam: Bilateral Eye: Normal Inspection Ears: Normal External Exam, Normal Canal, Hearing Grossly Normal, Normal TMs, Hearing Loss Nose: Normal Inspection, No Blood Throat/Mouth: Normal Inspection, Normal Lips, Normal Oropharynx, Normal Voice, No Airway Compromise Head Exam: Atraumatic, Normocephalic Neck: Normal Inspection, Supple, Non-Tender Respiratory/Chest: No Respiratory Distress, Lungs Clear, Normal Breath Sounds, No Accessory Muscle Use Cardiovascular: Regular Rate, Rhythm, No Edema, Tachycardia GI/Abdominal: Soft, Non-Tender, No Distention Neuro Exam (Abbreviated): Alert, Oriented, CN II-XII Intact, No Motor/Sensory Deficits, Other (slow mentation) Back Exam: Normal Inspection. No: CVA Tenderness (R), CVA Tenderness (L) Extremities: Normal Inspection, Normal Range of Motion, Non-Tender, No Pedal Edema Psychiatric: Normal Affect, Normal Mood Skin Exam: Warm, Dry, Intact, Normal Color, No Rash Course - Vital Signs Last Recorded V/S: Last Vital Signs Temp 36.7 C 09/03/19 05:52 Pulse 120 H 09/03/19 05:52 Resp 12 09/03/19 05:52 BP 159/92 H 09/03/19 05:52 Pulse Ox 96 09/03/19 05:52 - Orders/Labs/Meds Orders: Active Orders 24 hr Category Date Time Status Head wo Cont [CT] Stat Exams 09/03/19 06:00 Taken CULTURE URINE [RM] Stat Lab 09/03/19 08:50 Received CULTURE URINE [RM] Stat Lab 09/03/19 09:41 Ordered Labs: Laboratory Tests 09/03/19 09/03/19 09/03/19 Range/Units 08:50 08:55 08:55 WBC 10.4 (4.5-12.0) X10-3/uL RBC 4.25 (3.23-5.20) x10(6)uL Hgb 13.1 (11.5-15.5) g/dL Hct 40.9 (30.0-51.3) % MCV 96.3 H (80-96) fL MCH 30.9 (27.7-33.6) pg MCHC 32.1 L (32.2-35.4) g/dL RDW 12.1 (11.5-15.5) % Plt Count 157 (125-369) X10(3)uL MPV 9.7 (7.4-10.4) fL Neut % (Auto) 76.1 (46-82) % Lymph % (Auto) 19.5 (13-37) % [place] % (Auto) 3.4 L (4-12) % Eos % (Auto) 0 L (1.0-5.0) % Baso % (Auto) 1 (0-2) % Neut # (Auto) 7.9 (1.6-8.3) # Lymph # (Auto) 2.0 (0.6-5.0) # [place] # (Auto) 0.4 (0.0-1.3) # Eos # (Auto) 0.0 (0.0-0.8) # Baso # (Auto) 0.1 (0.0-0.2) # Sodium 138 (135-145) mmol/L Potassium 4.2 (3.5-5.3) mmol/L Chloride 101 D (100-110) mmol/L Carbon Dioxide 26 (21-32) mmol/L BUN 24 H (7-18) mg/dL Creatinine 1.1 H (0.55-1.02) mg/dL Est Cr Clr Drug Dosing 39.92 mL/min Estimated GFR (MDRD) 49 L (>60) BUN/Creatinine Ratio 21.8 H (9-20) Glucose 121 H (80-116) mg/dL Calcium 8.9 (8.6-10.2) mg/dL Urine Color Yellow (YELLOW) Urine Appearance Cloudy (CLEAR) Urine pH 8.0 H (5.0-6.5) Ur Specific [place] 1.015 (1.010-1.025) Urine Protein Negative (NEGATIVE) mg/dL Urine Glucose (UA) Normal (NORMAL) mg/dL Urine Ketones Negative (NEGATIVE) mg/dL Urine Occult Blood Moderate H (NEGATIVE) Urine Nitrite Negative (NEGATIVE) Urine Bilirubin Negative (NEGATIVE) Urine Urobilinogen Normal (NEGATIVE) mg/dL Ur Leukocyte Esterase Large H (NEGATIVE) Urine RBC 5-10 H (0-5) Urine WBC 75-100 H (0-5) Ur Squamous Epith Cells Occasional (NS,R,O) Urine Bacteria Many H (NS) Meds: Medications Discontinued Medications Generic Name Dose Route Start Last Admin Trade Name Freq PRN Reason Stop Dose Admin Cephalexin 500 mg 09/03/19 09:42 Keflex PO 09/03/19 09:43 ONETIME ONE Diphenhydramine HCl 25 mg 09/03/19 06:00 09/03/19 06:22 Benadryl IVPUSH 09/03/19 06:01 25 mg ONETIME ONE Administration Lactated Ringer's 1,000 mls @ 1,000 mls/hr 09/03/19 05:59 09/03/19 06:22 Ringers, Lactated IV 09/03/19 06:58 1,000 mls/hr BOLUS ONE Administration Ketorolac Tromethamine 15 mg 09/03/19 07:19 09/03/19 07:22 Toradol IVPUSH 09/03/19 07:20 15 mg ONETIME ONE Administration Prochlorperazine Edisylate 10 mg 09/03/19 06:00 09/03/19 06:22 Compazine IVPUSH 09/03/19 06:01 10 mg ONETIME ONE Administration - Radiology Interpretation Free Text/Narrative:: CT head without contrast-neg Departure - Departure Time of Disposition: 10:00 Disposition: Home, Self-Care 01 Condition: Fair Clinical Impression: UTI (urinary tract infection) Qualifiers: Urinary tract infection type: acute cystitis Hematuria presence: without hematuria Qualified Code(s): N30.00 - Acute cystitis without hematuria Headache Qualifiers: Headache type: unspecified Headache chronicity pattern: acute headache Intractability: not intractable Qualified Code(s): R51 - Headache Nausea and vomiting Qualifiers: Vomiting type: unspecified Vomiting Intractability: non-intractable Qualified Code(s): R11.2 - Nausea with vomiting, unspecified - Discharge Information *PRESCRIPTION DRUG MONITORING PROGRAM REVIEWED*: Not Applicable *COPY OF PRESCRIPTION DRUG MONITORING REPORT IN PATIENT [place]: Not Applicable Prescriptions: cephALEXin [Cephalexin] 500 mg PO Q8H #20 tablet Referrals: Roseline Willson NP [Primary Care Provider] - Forms: ED Department Discharge Additional Instructions: Drink ample fluids. Take cephalexin every 8 hrs until gone, your prescription was sent to your pharmacy. Take acetaminophen up to 1000 mg every 6 hrs as needed for pain and fever. Recheck with your provider in 2-3 days. Return if a lot worse. Sepsis Event Note (ED) - Focused Exam Vital Signs: Vital Signs Temp Pulse Resp BP Pulse Ox 09/03/19 05:52 36.7 C 120 H 12 159/92 H 96 - My Orders Last 24 Hours: My Active Orders 09/03/19 06:00 Head wo Cont [CT] Stat 09/03/19 08:50 CULTURE URINE [RM] Stat 09/03/19 09:41 CULTURE URINE [RM] Stat - Assessment/Plan Last 24 Hours: My Active Orders 09/03/19 06:00 Head wo Cont [CT] Stat 09/03/19 08:50 CULTURE URINE [RM] Stat 09/03/19 09:41 CULTURE URINE [RM] Stat
[2019-09-03] MEDS ORDERED: Ketorolac 30 MG/ML SDV IVPUSH ONE (07:19)
[2019-09-03 07:25] VITALS: BP 159/92; PULSE 120
[2019-09-03] MEDS ORDERED: Cephalexin 500 MG Cap PO ONE ×2 (09:42→10:00)
[2019-09-03] MEDS ORDERED: Acetaminophen 500 MG Tab PO ONE (09:46)
== END 2019-09-03 10:35 | disposition home or self-care (01) ==
LOC: FB.ED 05:52
DX: N30.00 Acute cystitis without hematuria (principal); R51 Headache; R11.2 Nausea with vomiting, unspecified; E11.9 Type 2 diabetes mellitus without complications; Z86.73 Personal history of transient ischemic attack (TIA), and cerebral infarction without residual deficits; Z88.1 Allergy status to other antibiotic agents; Z88.2 Allergy status to sulfonamides; Z88.5 Allergy status to narcotic agent; Z79.82 Long term (current) use of aspirin; Z79.899 Other long term (current) drug therapy
CPT/HCPCS: 36415; 51701; 70450; 80048; 81001; 85025; 87086; 96361; 96374; 96375; 99284; A9270; J0780; J1200; J1885; J7120

== ENCOUNTER 2019-10-29 18:04 | Emergency (ER) | payer MEDICARE ==
--- NOTE | 2019-10-29 18:29 | EDM.PDOC ---
ED HPI GENERAL MEDICAL PROBLEM - General Stated Complaint: SOB Time Seen by Provider: 10/29/19 18:23 Source of Information: Reports: Patient History Limitations: Reports: Altered Mental Status - History of Present Illness INITIAL COMMENTS - FREE TEXT/NARRATIVE: pt was dropped in ER with c/o SOB by her and left soon after registering the pt. pt here has profound confusion and unable to give meaningful Hx, she does answer some questions, stating she feel SOB, and unable to indicate since when and if she has Hx of this, she denies chest pain or pain in general, denies emesis and was unable to answer any other questions pertinent to HPI otherwise to me . she is oriented to place and self , not to time/date and has stable vitals and no gross signs of a stroke on arrival. . - Related Data Allergies Allergy/AdvReac Type Severity Reaction Status Date / Time ciprofloxacin Allergy Hives Verified 12/04/18 08:35 codeine Allergy Respiratory Verified 12/04/18 08:35 Distress sulfamethoxazole Allergy Diarrhea Verified 12/04/18 08:35 [From Bactrim] Home Meds: Home Meds Lisinopril 5 mg PO DAILY 12/16/14 [History] Aspirin [Halfprin] 81 mg PO DAILY 09/03/19 [History] Celecoxib 200 mg PO DAILY PRN 09/03/19 [History] Cholecalciferol (Vitamin D3) [Vitamin D3] 2,000 unit PO DAILY 09/03/19 [History] Famotidine 20 mg PO BEDTIME 09/03/19 [History] Loperamide [Imodium] 2 mg PO ASDIRECTED PRN 09/03/19 [History] Simvastatin 10 mg PO BEDTIME 09/03/19 [History] cephALEXin [Cephalexin] 500 mg PO Q8H #20 tablet 09/03/19 [Rx] traMADol [Ultram] 50 mg PO ASDIRECTED PRN 09/03/19 [History] Past Medical History - Past Health History Medical/Surgical History: Denies Medical/Surgical History HEENT History: Reports: Impaired Vision, Other (See Below) Other HEENT History: wears glasses Cardiovascular History: Reports: Other (See Below) Other Cardiovascular History: hypertrophy. 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 on 11/29 Neurological History: Reports: CVA Endocrine/Metabolic History: Reports: Diabetes, Type II, Other (See Below) Other Endocrine/Metabolic History: diet controlled Dermatologic History: Reports: Psoriasis - Past Surgical History GI Surgical History: Reports: Cholecystectomy Female Surgical History: Reports: Section, Hysterectomy Musculoskeletal Surgical History: Reports: Knee Replacement Other Musculoskeletal Surgeries/Procedures:: 11/29/16 Social & Family History - Family History Family Medical History: Noncontributory - Caffeine Use Caffeine Use: Reports: Coffee - Living Situation & Occupation Living situation: Reports: ED ROS GENERAL - Review of Systems Review Of Systems: Unable To Obtain (altered mental status.) Reason Not Obtained: altered mental status/ confusion ED EXAM, GENERAL - Physical Exam Exam: See Below Exam Limited By: Altered Mental Status General Appearance: Anxious, Moderate Distress. No: Lethargic, Obtunded Eye Exam: Bilateral Eye: Normal Inspection Nose: Normal Inspection, Normal Mucosa Throat/Mouth: Normal Inspection, Normal Oropharynx Head: Atraumatic Neck: Normal Inspection, Supple Respiratory/Chest: No Respiratory Distress, Lungs Clear Cardiovascular: Normal Peripheral Pulses, Regular Rate, Rhythm GI/Abdominal: Normal Bowel Sounds, Soft, Non-Tender Back Exam: Normal Inspection Extremities: Normal Inspection, Normal Range of Motion, No Pedal Edema Neurological: Alert, CN II-XII Intact, No Motor/Sensory Deficits Skin Exam: Warm, Dry Course - Vital Signs Text/Narrative:: @ 6:30 , we are arranging to contact to return to ER [facility] to obtain farther information about pt medicall Hx od HPI. from pt available records it looks like she has Hx of DM and CRI. the following tests/ labs were ordered . cbc , cmp, BNP , d-dimer, ua, trop, CXR . BS is 107. @ 7pm pt care will be handed to Dr Pedro to follow on test results and visit with pt . Dx.. work up in progress for Altered mental status and c/o SOB. - Orders/Labs/Meds Orders: Active Orders 24 hr Category Date Time Status EKG Documentation Completion [RC] ASDIRECTED Care 10/29/19 18:52 Ordered RT Aerosol Therapy [RC] ASDIRECTED Care 10/29/19 18:42 Ordered Chest 1V Frontal [CR] Stat Exams 10/29/19 18:41 Ordered CBC WITH AUTO DIFF [HEME] Stat Lab 10/29/19 18:41 Ordered COMPREHENSIVE METABOLIC PN,CMP [CHEM] Stat Lab 10/29/19 18:41 Ordered D Dimer [D-DIMER QUANTITATIVE] [COAG] Stat Lab 10/29/19 18:42 Ordered PRO B-TYPE NATRIUR PEPT,BNPPRO [CHEM] Stat Lab 10/29/19 18:41 Ordered TROPONIN I [CHEM] Stat Lab 10/29/19 18:41 Ordered UA W/MICROSCOPIC [URIN] Stat Lab 10/29/19 18:41 Ordered EKG 12 Lead [EK] Routine Ther 10/29/19 18:52 Ordered Meds: Medications Discontinued Medications Generic Name Dose Route Start Last Admin Trade Name Freq PRN Reason Stop Dose Admin Albuterol/Ipratropium 3 ml 10/29/19 18:41 Duoneb 3.0-0.5 Mg/3 Ml NEB 10/29/19 18:42 ONETIME ONE Departure - Departure Time of Disposition: 18:53 Disposition: Admitted As Inpatient 67 Clinical Impression: Altered mental status - Discharge Information - My Orders Last 24 Hours: My Active Orders 10/29/19 18:41 Chest 1V Frontal [CR] Stat CBC WITH AUTO DIFF [HEME] Stat COMPREHENSIVE METABOLIC PN,CMP [CHEM] Stat PRO B-TYPE NATRIUR PEPT,BNPPRO [CHEM] Stat TROPONIN I [CHEM] Stat UA W/MICROSCOPIC [URIN] Stat 10/29/19 18:42 RT Aerosol Therapy [RC] ASDIRECTED D Dimer [D-DIMER QUANTITATIVE] [COAG] Stat 10/29/19 18:52 EKG Documentation Completion [RC] ASDIRECTED EKG 12 Lead [EK] Routine - Assessment/Plan Last 24 Hours: My Active Orders 10/29/19 18:41 Chest 1V Frontal [CR] Stat CBC WITH AUTO DIFF [HEME] Stat COMPREHENSIVE METABOLIC PN,CMP [CHEM] Stat PRO B-TYPE NATRIUR PEPT,BNPPRO [CHEM] Stat TROPONIN I [CHEM] Stat UA W/MICROSCOPIC [URIN] Stat 10/29/19 18:42 RT Aerosol Therapy [RC] ASDIRECTED D Dimer [D-DIMER QUANTITATIVE] [COAG] Stat 10/29/19 18:52 EKG Documentation Completion [RC] ASDIRECTED EKG 12 Lead [EK] Routine
[2019-10-29] MEDS: Albuterol/Ipratropium 3.0-0.5 MG/3 ML Neb Soln NEB ONE (19:37)
--- NOTE | 2019-10-29 19:52 | PCM.SN.2 ---
- Free Text/Narrative Note: [facility] Date: 10/29/2019 Time: 1908 to 1926 Dx: Altered mental status and Very Poor Peripheral Venous Access. Rx: Obtain Peripheral Venous Access. Procedure: Placement of Peripheral Venous Access Catheter I was called to the ED per the ED physician request to obtain peripheral venous access after failed attempts by the nursing staff. I found a superficial vein on her distal anterior right forearm near the hand. I prepped the area with alcohol wipes x 2 and allowed it to dry. I then inserted and advanced a BD Insyte [employer] BC Winged 22 GA. X 1.00 IN catheter times 1 attempt. It was moderately difficult and there is a small hematoma at the insertion site. I flushed the catheter with 20 ml's of normal saline easily without infiltration. An Op-Site dressing was applied. She tolerated this procedure okay. Thank You JUSTIN Avelar CRNA
[2019-10-29] MEDS: Ondansetron 4 MG/2 ML SDV IVPUSH ONE (20:06)
[2019-10-29] MEDS: Aspirin 81 MG Tab.Chew PO ONE (21:15)
[2019-10-29] MEDS: cefTRIAXone 1 GM Vial IVPUSH STA (21:16)
[2019-10-29] MEDS: Ketorolac 30 MG/ML SDV IVPUSH ONE (21:29)
[2019-10-29 22:16] VITALS: BP 132/70; PULSE 93
--- NOTE | 2019-10-30 11:02 | CR ---
INDICATION: Shortness of breath. CHEST, ONE VIEW: Two AP upright portable views of the chest were obtained 10/29/19 and compared with 10/17/[address] Upper lung field pulmonary vasculature is somewhat indistinct and prominent suggesting CHF. The heart, however, did not appear grossly enlarged. No consolidating pneumonia or definite effusion was seen. Overlying EKG leads are noted. Exogenous obesity is noted. The aorta is tortuous with calcification in the arch. IMPRESSION: 1. Pulmonary vascular congestion possibly due to myocardial event, but should be correlated clinically as other etiology cannot be excluded. 2. Exogenous obesity. MTDD
== END 2019-10-29 22:26 | disposition critical access hospital (66) ==
LOC: FB.ED 18:04
DX: R41.82 Altered mental status, unspecified (principal); E11.9 Type 2 diabetes mellitus without complications; Z88.1 Allergy status to other antibiotic agents; Z88.5 Allergy status to narcotic agent; Z88.2 Allergy status to sulfonamides; Z79.82 Long term (current) use of aspirin; Z79.899 Other long term (current) drug therapy; Z86.73 Personal history of transient ischemic attack (TIA), and cerebral infarction without residual deficits
CPT/HCPCS: 36410; 36415; 70450; 71045; 80053; 81001; 82962; 83880; 84484; 85025; 85379; 85610; 85730; 87086; 87088; 93005; 94640; 96374; 96375; 99285-25; A9270-GY; J0696; J1885; J2405; J7620-GY

== ENCOUNTER 2021-03-15 15:33 | Emergency (ER) | payer MEDICARE ==
--- NOTE | 2021-03-15 15:50 | EDM.PDOC ---
ED HPI GENERAL MEDICAL PROBLEM - General Chief Complaint: Headache Stated Complaint: HEADACHE Time Seen by Provider: 03/15/21 15:45 Source of Information: Reports: Patient, Family, RN Notes Reviewed History Limitations: Reports: No Limitations - History of Present Illness INITIAL COMMENTS - FREE TEXT/NARRATIVE: 75 yo F with h/o Recurrent UTI amongst other medical problems listed in her chart. She presented to the ER today with sudden onset headache which she describes as dull ache mainly on the Frontal part of the Scalp. Rates headache as 5/10 in severity. Her son who as at the bedside reports that patient sometimes gets headache when she has UTI. No nausea, vomiting or abdominal pain. Patient presented to the ER for further evaluation. Onset: Gradual Duration: Day(s): (started today and got worse) Quality: Reports: Ache Frontal headache Pain Score (Numeric/FACES): 10 - Related Data Allergies Allergy/AdvReac Type Severity Reaction Status Date / Time ciprofloxacin Allergy Hives Verified 03/15/21 15:35 codeine Allergy Respiratory Verified 03/15/21 15:35 Distress sulfamethoxazole Allergy Diarrhea Verified 03/15/21 15:35 [From Bactrim] Home Meds: Home Meds Lisinopril 10 mg PO DAILY 12/16/14 [History] Meloxicam [Mobic] 7.5 mg PO DAILY 03/15/21 [History] Potassium Citrate [Potassium Citrate ER] 15 meq PO TID 03/15/21 [History] cephALEXin [Keflex] 500 mg PO Q8H 7 Days #21 cap 03/15/21 [Rx] Past Medical History - Past Health History Medical/Surgical History: Denies Medical/Surgical History HEENT History: Reports: Impaired Vision, Other (See Below) Other HEENT History: wears glasses Cardiovascular History: Reports: Other (See Below) Other Cardiovascular History: hypertrophy. 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 on 11/29 Neurological History: Reports: CVA Endocrine/Metabolic History: Reports: Diabetes, Type II, Other (See Below) Other Endocrine/Metabolic History: diet controlled Dermatologic History: Reports: Psoriasis - Past Surgical History GI Surgical History: Reports: Cholecystectomy Female Surgical History: Reports: Section, Hysterectomy Musculoskeletal Surgical History: Reports: Knee Replacement Other Musculoskeletal Surgeries/Procedures:: 11/29/16 Social & Family History - Family History Family Medical History: No Pertinent Family History - Caffeine Use Caffeine Use: Reports: Coffee - Living Situation & Occupation Living situation: Reports: ED ROS GENERAL - Review of Systems Review Of Systems: See Below Constitutional: Reports: No Symptoms HEENT: Reports: No Symptoms Respiratory: Reports: No Symptoms Cardiovascular: Reports: No Symptoms Endocrine: Reports: No Symptoms GI/Abdominal: Reports: No Symptoms : Reports: No Symptoms Musculoskeletal: Reports: No Symptoms Skin: Reports: No Symptoms Neurological: Reports: Headache Psychiatric: Reports: No Symptoms Hematologic/Lymphatic: Reports: No Symptoms Immunologic: Reports: No Symptoms - Physical Exam Exam: See Below Exam Limited By: No Limitations General Appearance: Alert, WD/WN, No Apparent Distress Eye Exam: Bilateral Eye: PERRL Ears: Normal External Exam, Normal Canal, Hearing Grossly Normal, Normal TMs Nose: Normal Inspection, Normal Mucosa, No Blood Throat/Mouth: Normal Inspection, Normal Lips, Normal Teeth, Normal Gums, Normal Oropharynx, Normal Voice, No Airway Compromise Head Exam: Atraumatic, Normocephalic Neck: Normal Inspection, Supple, Non-Tender, Full Range of Motion Respiratory/Chest: No Respiratory Distress, Lungs Clear, Normal Breath Sounds, No Accessory Muscle Use, Chest Non-Tender Cardiovascular: Normal Peripheral Pulses, Regular Rate, Rhythm, No Edema, No Gallop, No JVD, No Murmur, No Rub GI/Abdominal: Normal Bowel Sounds, Soft, Non-Tender, No Organomegaly, No Distention, No Abnormal Bruit, No Mass Neuro Exam (Abbreviated): Alert, Oriented, CN II-XII Intact, Normal Cognition, Normal Gait, Normal Reflexes, No Motor/Sensory Deficits Back Exam: Normal Inspection, Full Range of Motion, NT Extremities: Normal Inspection, Normal Range of Motion, Non-Tender, No Pedal Edema, Normal Capillary Refill Psychiatric: Normal Affect, Normal Mood Skin Exam: Warm, Dry, Intact, Normal Color, No Rash Course - Vital Signs Last Recorded V/S: Last Vital Signs Temp 36.9 C 03/15/21 15:33 Pulse 87 03/15/21 15:33 Resp 20 03/15/21 15:33 BP 210/108 H 03/15/21 15:33 Pulse Ox 97 03/15/21 15:33 - Orders/Labs/Meds Orders: Active Orders 24 hr Category Date Time Status Head wo Cont [CT] Stat Exams 03/15/21 15:54 Taken CULTURE URINE [RM] Stat Lab 03/15/21 17:30 Received Sodium Chloride 0.9% [Normal Saline] 1,000 ml Med 03/15/21 16:00 Active IV ASDIRECTED fentaNYL [Sublimaze] Med 03/15/21 17:45 Active 50 mcg IVPUSH ONETIME Medication Orders Fentanyl (Fentanyl 100 Mcg/2 Ml Sdv) 50 mcg IVPUSH ONETIME CLAIRE Last Admin: 03/15/21 17:49 Dose: 50 mcg Documented by: MATIMAR Sodium Chloride (Normal Saline) 1,000 mls @ 250 mls/hr IV ASDIRECTED CLAIRE Last Admin: 03/15/21 16:11 Dose: 250 mls/hr Documented by: LAYOR Labs: Laboratory Tests 03/15/21 03/15/21 03/15/21 Range/Units 16:10 16:15 17:30 WBC 9.3 (3.0-10.3) x10-3/uL RBC 4.57 (3.60-5.20) x10(6)uL Hgb 14.0 (11.4-15.5) g/dL Hct 43.1 (34.2-48.2) % MCV 94.2 (76.7-100.5) fL MCH 30.6 (23.9-33.9) pg MCHC 32.5 (31.9-34.8) g/dL RDW 13.1 (12.3-16.5) % Plt Count 153 (151-488) x10(3)uL MPV 9.1 (7.1-12.4) fL Neut % (Auto) 56.9 (30.8-76.2) % Lymph % (Auto) 33.6 (18.4-52.1) % [place] % (Auto) 7.6 (4.4-15.7) % Eos % (Auto) 0.8 (0.6-8.1) % Baso % (Auto) 1.1 (0.2-1.5) % Neut # (Auto) 5.3 (1.5-6.3) x10-3/uL Lymph # (Auto) 3.1 (1.0-4.4) x10-3/uL [place] # (Auto) 0.7 (0.3-1.0) x10-3/uL Eos # (Auto) 0.1 (0.0-0.8) x10-3/uL Baso # (Auto) 0.1 (0.0-0.1) x10-3/uL Sodium 135 (135-145) mmol/L Potassium 4.6 (3.5-5.3) mmol/L Chloride 101 (100-110) mmol/L Carbon Dioxide 26 (21-32) mmol/L BUN 16 (7-18) mg/dL Creatinine 0.9 (0.55-1.02) mg/dL Est Cr Clr Drug Dosing 45.36 mL/min Estimated GFR (MDRD) > 60 (>60) BUN/Creatinine Ratio 17.8 (9-20) Glucose 105 (80-116) mg/dL Calcium 8.8 (8.6-10.2) mg/dL Total Bilirubin 0.3 (0.1-1.3) mg/dL AST 28 H D (5-25) IU/L ALT 24 D (12-36) U/L Alkaline Phosphatase 84 (56-112) IU/L Total Protein 7.8 (6.0-8.0) g/dL Albumin 3.5 (3.2-4.6) g/dL Globulin 4.3 g/dL Albumin/Globulin Ratio 0.8 Urine Color Yellow (YELLOW) Urine Appearance Slightly cloudy (CLEAR) Urine pH 6.5 (5.0-6.5) Ur Specific [place] 1.015 (1.010-1.025) Urine Protein Negative (NEGATIVE) mg/dL Urine Glucose (UA) Normal (NORMAL) mg/dL Urine Ketones Negative (NEGATIVE) mg/dL Urine Occult Blood Moderate H (NEGATIVE) Urine Nitrite Positive H (NEGATIVE) Urine Bilirubin Negative (NEGATIVE) Urine Urobilinogen Normal (NEGATIVE) mg/dL Ur Leukocyte Esterase Large H (NEGATIVE) Urine RBC 0-5 (0-5) Urine WBC 30-40 H (0-5) Ur Squamous Epith Cells Occasional (NS,R,O) Urine Bacteria Moderate H (NS) Meds: Medications Generic Name Dose Route Start Last Admin Trade Name Freq PRN Reason Stop Dose Admin Fentanyl 50 mcg 03/15/21 17:45 03/15/21 17:49 Fentanyl 100 Mcg/2 Ml Sdv IVPUSH 50 mcg ONETIME CLAIRE Administration Sodium Chloride 1,000 mls @ 250 mls/hr 03/15/21 16:00 03/15/21 16:11 Normal Saline IV 250 mls/hr ASDIRECTED CLAIRE Administration Discontinued Medications Generic Name Dose Route Start Last Admin Trade Name Nirmal PRN Reason Stop Dose Admin Cephalexin 500 mg 03/15/21 18:26 Cephalexin 500 Mg Cap PO 03/15/21 18:27 ONETIME ONE Diphenhydramine HCl 25 mg 03/15/21 15:56 03/15/21 16:16 Diphenhydramine 50 Mg/Ml Sdv IVPUSH 03/15/21 15:57 25 mg ONETIME ONE Administration Fentanyl 25 mcg 03/15/21 15:58 03/15/21 16:17 Fentanyl 100 Mcg/2 Ml Sdv IVPUSH 03/15/21 15:59 25 mcg ONETIME STA Administration Metoclopramide HCl 10 mg 03/15/21 15:56 03/15/21 16:15 Metoclopramide 10 Mg/2 Ml Sdv IVPUSH 03/15/21 15:57 10 mg ONETIME ONE Administration Departure - Departure Time of Disposition: 18:28 Disposition: Home, Self-Care 01 Clinical Impression: Migraine UTI (urinary tract infection) Qualifiers: Urinary tract infection type: acute cystitis Hematuria presence: without hematuria Qualified Code(s): N30.00 - Acute cystitis without hematuria - Discharge Information *PRESCRIPTION DRUG MONITORING PROGRAM REVIEWED*: No *COPY OF PRESCRIPTION DRUG MONITORING REPORT IN PATIENT [place]: No Prescriptions: cephALEXin [Keflex] 500 mg PO Q8H 7 Days #21 cap Instructions: Urinary Tract Infection, Adult, [id number], Migraine Headache Referrals: PCP,Unknown [Ordering Only Provider] - Forms: ED Department Discharge Additional Instructions: Follow with PCP Follow up appointment with Urology Return if symptoms worsen Sepsis Event Note (ED) - Evaluation Sepsis Screening Result: No Definite Risk - Focused Exam Vital Signs: Vital Signs Temp Pulse Resp BP Pulse Ox 03/15/21 15:33 36.9 C 87 20 210/108 H 97 - My Orders Last 24 Hours: My Active Orders 03/15/21 15:54 Head wo Cont [CT] Stat 03/15/21 16:00 Sodium Chloride 0.9% [Normal Saline] 1,000 ml IV ASDIRECTED 03/15/21 17:30 CULTURE URINE [RM] Stat 03/15/21 17:45 fentaNYL [Sublimaze] 50 mcg IVPUSH ONETIME - Assessment/Plan Last 24 Hours: My Active Orders 03/15/21 15:54 Head wo Cont [CT] Stat 03/15/21 16:00 Sodium Chloride 0.9% [Normal Saline] 1,000 ml IV ASDIRECTED 03/15/21 17:30 CULTURE URINE [RM] Stat 03/15/21 17:45 fentaNYL [Sublimaze] 50 mcg IVPUSH ONETIME
[2021-03-15] MEDS ORDERED: Metoclopramide 10 MG/2 ML SDV IVPUSH ONE (15:56)
[2021-03-15] MEDS ORDERED: diphenhydrAMINE 50 MG/ML SDV IVPUSH ONE (15:56)
[2021-03-15] MEDS ORDERED: fentaNYL 100 MCG/2 ML SDV IVPUSH STA (15:58)
[2021-03-15] MEDS ORDERED: Sodium Chloride 0.9% 1,000 ML IV SCH (16:00)
[2021-03-15] MEDS ORDERED: fentaNYL 100 MCG/2 ML SDV IVPUSH SCH (17:45)
[2021-03-15] MEDS ORDERED: Cephalexin 500 MG Cap PO ONE (18:26)
[2021-03-15 19:26] VITALS: BP 148/81; PULSE 82
== END 2021-03-15 18:54 | disposition home or self-care (01) ==
LOC: FB.ED 15:33
DX: G43.909 Migraine, unspecified, not intractable, without status migrainosus (principal); N30.00 Acute cystitis without hematuria; E11.9 Type 2 diabetes mellitus without complications; Z86.73 Personal history of transient ischemic attack (TIA), and cerebral infarction without residual deficits; Z88.5 Allergy status to narcotic agent; Z88.1 Allergy status to other antibiotic agents; Z79.899 Other long term (current) drug therapy
CPT/HCPCS: 36415; 70450; 80053; 81001; 85025; 87086; 87088; 87186; 96374; 96375; 99284-25; A9270-GY; J1200; J2765; J3010; J7030

== ENCOUNTER 2021-06-18 09:35 | Emergency (ER) | payer MEDICARE ==
[2021-06-18] MEDS ORDERED: Sodium Chloride 0.9% 10 ML Syringe FLUSH PRN (09:38)
[2021-06-18] MEDS ORDERED: Aspirin 81 MG Tab.Chew PO ONE (10:16)
[2021-06-18 10:50] VITALS: PULSE 69
[2021-06-18 11:08] VITALS: BP 168/89
== END 2021-06-18 11:40 ==
LOC: FB.ED 09:35
DX: I63.9 Cerebral infarction, unspecified (principal); E78.00 Pure hypercholesterolemia, unspecified; I10 Essential (primary) hypertension; N17.9 Acute kidney failure, unspecified; E11.9 Type 2 diabetes mellitus without complications; E86.0 Dehydration; E66.9 Obesity, unspecified; Z86.73 Personal history of transient ischemic attack (TIA), and cerebral infarction without residual deficits; Z88.5 Allergy status to narcotic agent; Z88.1 Allergy status to other antibiotic agents; Z68.35 Body mass index [BMI] 35.0-35.9, adult
CPT/HCPCS: 36410; 36415; 70450; 71045; 80053; 82947; 84484; 85025; 85610; 85730; 93005; 93010; 99284; 99285-25; A9270-GY; U0002

== ENCOUNTER 2024-03-15 15:40 | Emergency (ER) | payer MEDICARE ==
[2024-03-15] MEDS ORDERED: Sodium Chloride 0.9% 10 ML Syringe FLUSH PRN (15:45)
[2024-03-15] MEDS ORDERED: Sodium Chloride 0.9% 1,000 ML IV ONE (15:51)
[2024-03-15 17:02] LABS: HEMATOCRIT 38.1 % (34.2-48.2); HEMOGLOBIN 12.6 g/dL (11.4-15.5); MEAN CORPUSCULAR HEMOGLOBIN 31.9 pg (23.9-33.9); MEAN CORPUSCULAR HGB CONC 33.1 g/dL (31.9-34.8); MEAN CORPUSCULAR VOLUME 96.4 fL (76.7-100.5); MEAN PLATELET VOLUME 9.9 fL (7.1-12.4); PLATELET COUNT,PLT 130 x10(3)uL (151-488); RED BLOOD CELL COUNT 3.95 x10(6)uL (3.60-5.20); RED CELL DISTRIBUTION WIDTH 13.8 % (12.3-16.5); WHITE BLOOD CELL COUNT,WBC 14.7 x10-3/uL (3.0-10.3)
[2024-03-15 17:08] LABS: BLOOD UREA NITROGEN,BUN 29 mg/dL (7-18); BUN/CREATININE RATIO 24.2 (9-20); CALCIUM 8.8 mg/dL (8.6-10.2); CARBON DIOXIDE,CO2 24 mmol/L (21-32); CHLORIDE,CL 106 mmol/L (100-110); CREATININE 1.2 mg/dL (0.55-1.02); ESTIMATED GFR 47 mL/min (>60); GLUCOSE RANDOM 125 mg/dL (80-116); POTASSIUM,K 4.2 mmol/L (3.5-5.3); SODIUM,NA 141 mmol/L (135-145)
[2024-03-15 17:14] LABS: A/G RATIO 0.9; ALANINE AMINOTRANSFERASE,ALT 22 U/L (12-36); ALBUMIN 3.2 g/dL (3.2-4.6); ALKALINE PHOSPHATASE 85 IU/L (56-112); ASPARTATE AMNIOTRANSFERASE,AST 29 IU/L (5-25); BILIRUBIN TOTAL 0.6 mg/dL (0.1-1.3); PROTEIN TOTAL,TP 6.9 g/dL (6.0-8.0)
[2024-03-15 17:17] LABS: EOSINOPHILS PERCENT MAN 1 % (0-5); LYMPHOCYTES PERCENT MAN 13 % (13-37); MONOCYTES PERCENT MAN 7 % (4-12); SEG NEUTROPHILS PERCENT MAN 79 % (46-82)
[2024-03-15 17:21] LABS: LACTIC ACID 2.1 mmol/L (0.4-2.0)
[2024-03-15] MEDS ORDERED: Morphine 2 MG/ML SYRINGE IM ONE (17:53)
[2024-03-15] MEDS ORDERED: Naloxone 0.4 MG/ML SDV IVPUSH PRN (18:08)
[2024-03-15] MEDS: Morphine 2 MG/ML SYRINGE IVPUSH ONE (18:19)
[2024-03-15] MEDS: Ondansetron 4 MG/2 ML SDV IVPUSH ONE (18:22)
[2024-03-15 19:39] VITALS: PULSE 55
[2024-03-15 19:40] LABS: BILIRUBIN,URINE NEGATIVE (NEGATIVE); GLUCOSE,URINE NORMAL (NORMAL); KETONES,URINE NEGATIVE (NEGATIVE); LEUKOCYTE ESTERASE,URINE LARGE (NEGATIVE); NITRITE,URINE POSITIVE (NEGATIVE); OCCULT BLOOD,URINE LARGE (NEGATIVE); PROTEIN,URINE 30 mg/dL (NEGATIVE); UROBILINOGEN,URINE NORMAL (NEGATIVE)
[2024-03-15 19:47] LABS: APPEARANCE,URINE CLOUDY (CLEAR); COLOR,URINE YELLOW (YELLOW)
[2024-03-15 19:49] LABS: BACTERIA,URINE MANY (NS); SQUAMOUS EPITHELIAL CELLS,UR RARE (NS,R,O); WBC,URINE >100 (0-5)
[2024-03-15] MEDS: Meropenem 1 GM SDV IVPUSH ONE (20:20)
[2024-03-15 20:59] VITALS: BP 100/47
== END 2024-03-15 20:50 ==
LOC: FB.ED 15:40
DX: N13.2 Hydronephrosis with renal and ureteral calculous obstruction (principal); E11.69 Type 2 diabetes mellitus with other specified complication; E86.0 Dehydration; E66.9 Obesity, unspecified; I10 Essential (primary) hypertension; Z96.651 Presence of right artificial knee joint; Z86.73 Personal history of transient ischemic attack (TIA), and cerebral infarction without residual deficits; Z90.49 Acquired absence of other specified parts of digestive tract; Z90.710 Acquired absence of both cervix and uterus; Z88.5 Allergy status to narcotic agent; Z88.1 Allergy status to other antibiotic agents; Z88.8 Allergy status to other drugs, medicaments and biological substances
CPT/HCPCS: 36415; 74176; 80053; 81001; 83605; 83690; 84484; 85025; 87040; 87086; 87088; 87186; 93005; 96374; 96375; 99285-25; J2185; J2270; J2405

== ENCOUNTER 2024-05-25 21:31 | Emergency (ER) | payer MEDICARE ==
[2024-05-25] MEDS: Ondansetron 4 MG/2 ML SDV IVPUSH ONE (22:16)
[2024-05-25] MEDS: Sodium Chloride 0.9% 1,000 ML IV SCH (22:17)
[2024-05-25 22:21] LABS: HEMATOCRIT 37.5 % (34.2-48.2); HEMOGLOBIN 12.4 g/dL (11.4-15.5); MEAN CORPUSCULAR HEMOGLOBIN 30.9 pg (23.9-33.9); MEAN CORPUSCULAR VOLUME 93.6 fL (76.7-100.5); MEAN PLATELET VOLUME 9.4 fL (7.1-12.4); PLATELET COUNT,PLT 217 x10(3)uL (151-488); RED BLOOD CELL COUNT 4.01 x10(6)uL (3.60-5.20); RED CELL DISTRIBUTION WIDTH 13.8 % (12.3-16.5); WHITE BLOOD CELL COUNT,WBC 19.4 x10-3/uL (3.0-10.3)
[2024-05-25 22:23] LABS: APPEARANCE,URINE CLOUDY (CLEAR); BACTERIA,URINE MANY (NS); BILIRUBIN,URINE NEGATIVE (NEGATIVE); COLOR,URINE YELLOW (YELLOW); EPITHELIAL CELLS,URINE FEW; GLUCOSE,URINE NORMAL (NORMAL); KETONES,URINE NEGATIVE (NEGATIVE); LEUKOCYTE ESTERASE,URINE LARGE (NEGATIVE); NITRITE,URINE NEGATIVE (NEGATIVE); OCCULT BLOOD,URINE LARGE (NEGATIVE); PROTEIN,URINE 30 mg/dL (NEGATIVE); RBC,URINE >100 (0-5); UROBILINOGEN,URINE NORMAL (NEGATIVE); WBC,URINE >100 (0-5)
[2024-05-25 22:25] LABS: BLOOD UREA NITROGEN,BUN 28 mg/dL (7-18); BUN/CREATININE RATIO 23.3 (9-20); CALCIUM 8.8 mg/dL (8.6-10.2); CARBON DIOXIDE,CO2 24 mmol/L (21-32); CHLORIDE,CL 102 mmol/L (100-110); CREATININE 1.2 mg/dL (0.55-1.02); ESTIMATED GFR 47 mL/min (>60); GLUCOSE RANDOM 144 mg/dL (80-116); POTASSIUM,K 3.5 mmol/L (3.5-5.3); SODIUM,NA 137 mmol/L (135-145)
[2024-05-25 22:31] LABS: A/G RATIO 0.4; ALANINE AMINOTRANSFERASE,ALT 14 U/L (12-36); ALBUMIN 2.3 g/dL (3.2-4.6); ALKALINE PHOSPHATASE 91 IU/L (56-112); ASPARTATE AMNIOTRANSFERASE,AST 22 IU/L (5-25); PROTEIN TOTAL,TP 8.4 g/dL (6.0-8.0)
[2024-05-25 22:34] LABS: LYMPHOCYTES PERCENT MAN 10 % (13-37); MONOCYTES PERCENT MAN 10 % (4-12); SEG NEUTROPHILS PERCENT MAN 80 % (46-82)
[2024-05-25] MEDS: Iopamidol 755 Mg/ML 100 ML Bottle IV SCH (23:04)
[2024-05-25] MEDS: cefTRIAXone 1 GM in Sodium Chloride 0.9% 50 ML IV ONE (23:19)
[2024-05-26 00:27] VITALS: BP 152/56; PULSE 77
== END 2024-05-26 00:25 | disposition home or self-care (01) ==
LOC: FB.ED 21:31
DX: N39.0 Urinary tract infection, site not specified (principal); N10 Acute pyelonephritis; I10 Essential (primary) hypertension; E11.9 Type 2 diabetes mellitus without complications; E66.9 Obesity, unspecified; Z90.49 Acquired absence of other specified parts of digestive tract; Z90.710 Acquired absence of both cervix and uterus; Z88.1 Allergy status to other antibiotic agents; Z88.2 Allergy status to sulfonamides; Z88.5 Allergy status to narcotic agent
CPT/HCPCS: 36415; 74177; 80053; 81001; 83690; 83735; 85025; 86140; 87086; 87088; 87186; 96361; 96365; 96375; 99285; J0696; J2405; J7030; Q9967

== ENCOUNTER 2024-12-09 08:03 | Inpatient (IN) | payer MEDICARE ==
[2024-12-09] MEDS: Ondansetron 4 MG Tab.DIS PO ONE (10:09)
[2024-12-09 10:31] LABS: GLUCOSE,URINE NORMAL (NORMAL); OCCULT BLOOD,URINE MODERATE (NEGATIVE)
[2024-12-09 10:36] LABS: APPEARANCE,URINE CLOUDY (CLEAR)
[2024-12-09 10:37] LABS: SQUAMOUS EPITHELIAL CELLS,UR RARE (NS,R,O)
[2024-12-09] MEDS ORDERED: Ketorolac 30 MG/ML SDV IM ONE (11:31)
[2024-12-09 12:04] LABS: MEAN PLATELET VOLUME 10.2 fL (7.1-12.4); PLATELET COUNT,PLT 157 x10(3)uL (151-488); RED BLOOD CELL COUNT 4.17 x10(6)uL (3.60-5.20); RED CELL DISTRIBUTION WIDTH 14.6 % (12.3-16.5); WHITE BLOOD CELL COUNT,WBC 14.1 x10-3/uL (3.0-10.3)
[2024-12-09 12:11] LABS: BLOOD UREA NITROGEN,BUN 38 mg/dL (7-18); CARBON DIOXIDE,CO2 27 mmol/L (21-32); CHLORIDE,CL 104 mmol/L (100-110); CREATININE 1.1 mg/dL (0.55-1.02); ESTIMATED GFR 51 mL/min (>60); GLUCOSE RANDOM 108 mg/dL (80-116); POTASSIUM,K 5.1 mmol/L (3.5-5.3); SODIUM,NA 137 mmol/L (135-145)
[2024-12-09 12:17] LABS: A/G RATIO 0.9; ALANINE AMINOTRANSFERASE,ALT 19 U/L (12-36); ASPARTATE AMNIOTRANSFERASE,AST 21 IU/L (5-25); BILIRUBIN TOTAL 0.7 mg/dL (0.1-1.3); PROTEIN TOTAL,TP 7.4 g/dL (6.0-8.0)
[2024-12-09 12:54] LABS: LYMPHOCYTES % ATYPICAL MANUAL 2 % (0-0); LYMPHOCYTES PERCENT MAN 7 % (13-37); MONOCYTES PERCENT MAN 13 % (4-12); SEG NEUTROPHILS PERCENT MAN 78 % (46-82)
[2024-12-09] MEDS ORDERED: Ondansetron 4 MG Tab.DIS PO PRN (13:33)
[2024-12-09] MEDS: Ondansetron 4 MG/2 ML SDV IVPUSH ONE (15:15)
[2024-12-09] MEDS: Ketoconazole 2% Crm 30 GM Tube TOP SCH (15:30)
[2024-12-10 07:02] LABS: BASOPHILS ABSOLUTE AUTO 0.0 x10-3/uL (0.0-0.1); BASOPHILS PERCENT AUTO 0.5 % (0.2-1.5); EOSINOPHILS ABSOLUTE AUTO 0.1 x10-3/uL (0.0-0.8); EOSINOPHILS PERCENT AUTO 1.1 % (0.6-8.1); LYMPHOCYTES ABSOLUTE AUTO 2.6 x10-3/uL (1.0-4.4); LYMPHOCYTES PERCENT AUTO 31.2 % (18.4-52.1); MEAN PLATELET VOLUME 9.9 fL (7.1-12.4); MONOCYTES ABSOLUTE AUTO 0.7 x10-3/uL (0.3-1.0); MONOCYTES PERCENT AUTO 8.1 % (4.4-15.7); NEUTROPHILS ABSOLUTE AUTO 4.9 x10-3/uL (1.5-6.3); NEUTROPHILS PERCENT AUTO 59.1 % (30.8-76.2); PLATELET COUNT,PLT 129 x10(3)uL (151-488); RED BLOOD CELL COUNT 3.62 x10(6)uL (3.60-5.20); RED CELL DISTRIBUTION WIDTH 14.3 % (12.3-16.5); WHITE BLOOD CELL COUNT,WBC 8.3 x10-3/uL (3.0-10.3)
[2024-12-10 07:07] LABS: BLOOD UREA NITROGEN,BUN 28 mg/dL (7-18); CARBON DIOXIDE,CO2 26 mmol/L (21-32); CHLORIDE,CL 109 mmol/L (100-110); CREATININE 1.0 mg/dL (0.55-1.02); EST CRCL DRUG DOSING (CG) 38.35 mL/min; ESTIMATED GFR 58 mL/min (>60); GLUCOSE RANDOM 99 mg/dL (80-116); POTASSIUM,K 4.6 mmol/L (3.5-5.3); SODIUM,NA 140 mmol/L (135-145)
[2024-12-10] MEDS: FLU (Fluad Triv) 25-26 (65UP)/MF59C/PF 45 MCG/0.5 ML Syringe IM ONE (11:18)
[2024-12-10] MEDS: Sodium Chloride 0.9% 10 ML Syringe FLUSH PRN (13:24)
[2024-12-10 16:30] VITALS: BP 135/56; PULSE 66
== END 2024-12-10 17:35 | disposition home health service (06) | DRG 690 ==
LOC: FB.ED 08:03 → FB.MS 12:05
PROVIDERS: ADMIT Family Medicine; ATTEND Family Medicine
DX: N39.0 Urinary tract infection, site not specified (principal); E11.9 Type 2 diabetes mellitus without complications; I10 Essential (primary) hypertension; G93.49 Other encephalopathy; N17.9 Acute kidney failure, unspecified; Z88.1 Allergy status to other antibiotic agents; Z88.2 Allergy status to sulfonamides; L30.4 Erythema intertrigo; E86.0 Dehydration; H54.7 Unspecified visual loss; Z66 Do not resuscitate; E78.00 Pure hypercholesterolemia, unspecified; N20.0 Calculus of kidney; N18.9 Chronic kidney disease, unspecified; I12.9 Hypertensive chronic kidney disease with stage 1 through stage 4 chronic kidney disease, or unspecified chronic kidney disease; M19.90 Unspecified osteoarthritis, unspecified site; F41.9 Anxiety disorder, unspecified; F32.A Depression, unspecified; E11.22 Type 2 diabetes mellitus with diabetic chronic kidney disease; E66.9 Obesity, unspecified; Z96.659 Presence of unspecified artificial knee joint; Z68.39 Body mass index [BMI] 39.0-39.9, adult; Z79.01 Long term (current) use of anticoagulants; Z86.73 Personal history of transient ischemic attack (TIA), and cerebral infarction without residual deficits; Z90.49 Acquired absence of other specified parts of digestive tract; Z88.8 Allergy status to other drugs, medicaments and biological substances; Z98.891 History of uterine scar from previous surgery; Z90.710 Acquired absence of both cervix and uterus
CPT/HCPCS: 36415; 80048; 80053; 81001; 85025; 86140; 87040; 87086; 87088; 87186; 90653; 99223; 99238; 99285; A9270-GY; G0008; J0696; J1650; J7030; Q0162